=== PATIENT | female | born 1950 | race Hispanic/Latino ===

== ENCOUNTER 2019-08-27 22:07 | Observation (INO) | payer OTHER ==
[2019-08-27] MEDS ORDERED: DIAZEPAM 5 MG TABLET ONE (22:50)
[2019-08-27 23:59] LABS: Absolute Lymphocytes (CBC) 1.5 K/uL (0.7-4.9); Basophils % 0.7 % (0-1.3); Hematocrit 45.5 % (36.0-45.0); Lymphocytes % 16.8 % (15.3-44.8); MPV 9.8 fL (7.6-11.3); RBC Red Blood Cell Count 4.94 M/uL (3.86-4.86)
[2019-08-28 00:01] LABS: Protime INR 1.08
[2019-08-28 00:18] LABS: ALT/SGPT 23 U/L (12-78); AST/SGOT 16 U/L (15-37); Albumin 3.9 g/dL (3.4-5.0); Alkaline Phosphatase 66 U/L (45-117); BUN Blood Urea Nitrogen 14 mg/dL (7-18); Bicarbonate 24 mmol/L (21-32); Bilirubin Direct 0.2 mg/dL (0-0.2); Bilirubin Total 0.6 mg/dL (0.2-1.0); Glucose Level 174 mg/dL (74-106); Magnesium 2.1 mg/dL (1.8-2.4); NT PRO-BNP 102 pg/mL (<125); Protein, Total 8.6 g/dL (6.4-8.2); Sodium Level 137 mmol/L (136-145); Troponin (Emerg Dept Use Only) < 0.02 ng/mL (0.0-0.045)
--- NOTE | 2019-08-28 00:48 | ER ---
Nurse's Notes [facility] Name: Emelina Cummings Age: 69 yrs Sex: Female : 1950 Arrival Date: 08/27/2019 Time: 22:10 Bed 27 Private MD: Diagnosis: Chest pain, unspecified Presentation: 08/26 22:24 Chief complaint: Patient states: Pt states she has pain in the neck for two days and ls4 back pain in the thoracic area the radiates to the front. pt states she has had these pains before. Pt states she took tramadol for this but it ran out . Coronavirus screen: Proceed with normal triage. Patient denies a cough. Patient denies shortness of breath or difficulty breathing. Patient denies measured and/or subjective temperature greater than 100.4F prior to today's visit. Patient denies travel on a cruise ship or to a country the [facility] currently lists as an affected area. Patient denies contact with known and/or suspected case of COVID-19. Ebola Screen: No symptoms or risks identified at this time. Initial Sepsis Screen: Does the patient meet any 2 criteria? HR > 90 bpm. No. Patient's initial sepsis screen is negative. Does the patient have a suspected source of infection? No. Patient's initial sepsis screen is negative. Risk Assessment: Do you want to hurt yourself or someone else? Patient reports no desire to harm self or others. Onset of symptoms was August 24, 2019 at 08:00. Care prior to arrival: Medication(s) given: tramadol. Activity prior to arrival: None. 22:24 Method Of Arrival: Ambulatory ls4 22:24 Acuity: DOMINIQUE 3 ls4 Triage Assessment: 22:37 General: Appears in no apparent distress. Behavior is calm, cooperative. Pain: ls4 Complains of pain in neck Pain currently is 7 out of 10 on a pain scale. Neuro: No deficits noted. Level of Consciousness is awake, alert, obeys commands, Oriented to person, place, time, situation, Bottler are equal bilaterally Moves all extremities. Gait is steady, Speech is normal, Facial symmetry appears normal, Pupils are PERRLA, Respiratory: No deficits noted. GI: No deficits noted. No signs and/or symptoms were reported involving the gastrointestinal system. : No deficits noted. No signs and/or symptoms were reported regarding the genitourinary system. Derm: No deficits noted. No signs and/or symptoms reported regarding the dermatologic system. Musculoskeletal: No deficits noted. No signs and/or symptoms reported regarding the musculoskeletal system. Historical: - Allergies: 22:37 No Known Allergies; ls4 - Home Meds: 22:37 Januvia oral oral [Active]; losartan oral oral [Active]; ls4 - PMHx: 22:37 Hypertension; Diabetes - IDDM; ls4 - Immunization history:: Adult Immunizations up to date, Flu vaccine is up to date. - Social history:: Smoking status: Patient denies any tobacco usage or history of. Screenin:40 Abuse screen: Denies threats or abuse. Denies injuries from another. Nutritional ls4 screening: No deficits noted. Tuberculosis screening: No symptoms or risk factors identified. Fall Risk None identified. Assessment: 22:10 General: Appears in no apparent distress. comfortable. Neuro: No deficits noted. ls4 Cardiovascular: Reports pain behind left scapula that radiates around to front under left chest that started this morning. pt denied chest pain earlier, but family called to tell us that she was complaining of pain that was in her back and chest. Denies diaphoresis, fatigue, lightheadedness, nausea, palpitations, shortness of breath, syncope, vomiting, Capillary refill < 3 seconds Clubbing of nail beds is absent Patient's skin is warm and dry. Rhythm is regular. Respiratory: Airway is patent Respiratory effort is even, unlabored, Respiratory pattern is regular, Breath sounds are clear bilaterally. Denies cough, shortness of breath at rest. GI: No deficits noted. No signs and/or symptoms were reported involving the gastrointestinal system. : No deficits noted. No signs and/or symptoms were reported regarding the genitourinary system. EENT: No deficits noted. No signs and/or symptoms were reported regarding the EENT system. Derm: No deficits noted. No signs and/or symptoms reported regarding the dermatologic system. Musculoskeletal: Reports pain in left scapular area and neck. 23:39 Reassessment: Patient appears in no apparent distress at this time. Patient and/or ls4 family updated on plan of care and expected duration. Pain level reassessed. Patient is alert, oriented x 3, equal unlabored respirations, skin warm/dry/pink. 08/27 01:00 Reassessment: Patient appears in no apparent distress at this time. Patient and/or jb4 family updated on plan of care and expected duration. Pain level reassessed. Patient is alert, oriented x 3, equal unlabored respirations, skin warm/dry/pink. 02:00 Reassessment: Patient appears in no apparent distress at this time. Patient and/or jb4 family updated on plan of care and expected duration. Pain level reassessed. Patient is alert, oriented x 3, equal unlabored respirations, skin warm/dry/pink. 03:00 Reassessment: Patient appears in no apparent distress at this time. Patient and/or jb4 family updated on plan of care and expected duration. Pain level reassessed. Patient is alert, oriented x 3, equal unlabored respirations, skin warm/dry/pink. 04:30 Reassessment: Patient appears in no apparent distress at this time. Patient and/or jb4 family updated on plan of care and expected duration. Pain level reassessed. Patient is alert, oriented x 3, equal unlabored respirations, skin warm/dry/pink. PT transported upstairs to room 230 via wheelchair. IV saline lock, without s/s of infiltration or phlebitis. Gives good blood return and flushes with ease. Vital Signs: 08/26 22:24 BP 148 / 98; Pulse 126; Resp 14; Temp 98.1; Pulse Ox 99% on R/A; Weight 68.04 kg; ls4 Height 5 ft. 4 in. (162.56 cm); Pain 8/10; 23:35 BP 114 / 70; Pulse 107; Resp 14; Pulse Ox 100% on R/A; Pain 5/10; ls4 08/27 00:53 BP 128 / 64; Pulse 98; Resp 16; Pulse Ox 100% on R/A; Pain 3/10; ls4 02:00 BP 120 / 75; Pulse 97; Resp 16; Pulse Ox 96% on R/A; jb4 03:15 BP 97 / 72; Pulse 91; Resp 16; Pulse Ox 94% on R/A; jb4 04:30 BP 107 / 67; Pulse 81; Resp 16; Temp 97.4(O); Pulse Ox 96% on R/A; Pain 2/10; jb4 08/26 22:24 Body Mass Index 25.75 (68.04 kg, 162.56 cm) ls4 ED Course: 08/26 22:10 Patient arrived in ED. cl3 22:13 Kvng Brooks PA is PHCP. [facility] 22:13 Carlos Gil MD is Attending Physician. jmm 22:23 Bessy Valero, RN is Primary Nurse. ls4 22:28 Triage completed. ls4 22:39 Arm band placed on. ls4 22:40 Patient has correct armband on for positive identification. Bed in low position. Call ls4 light in reach. Side rails up X 1. Pulse ox on. NIBP on. Warm blanket given. 22:41 No provider procedures requiring assistance completed. Patient did not have IV access ls4 during this emergency room visit. 23:04 EKG done, by ED staff, reviewed by Kvng FUENTES. jp3 23:15 Chest Single View XRAY In Process Unspecified. EDMS 08/27 00:47 Meggan Girard MD is Hospitalizing Provider. [facility] 00:57 No apparent distress. Resting quietly. Awaiting bed assignment. ls4 Administered Medications: 08/26 22:53 Drug: Valium 5 mg Route: PO; ls4 23:10 Follow up: Response: No adverse reaction; Marked relief of symptoms ls4 23:20 Follow up: Response: No adverse reaction; Marked relief of symptoms ls4 08/27 02:08 Drug: Aspirin Chewable Tablet 324 mg Route: PO; jb4 03:00 Follow up: Response: No adverse reaction jb4 Outcome: 00:47 Decision to Hospitalize by Provider. [facility] 04:30 Admitted to Med/surg accompanied by nurse, via wheelchair, room 230, with chart, Report jb4 called to [facility] 04:30 Condition: stable 04:30 Discharge instructions given to patient, Instructed on the need for admit, Demonstrated understanding of instructions. 04:36 Patient left the ED. ar5 Signatures: Dispatcher [employer] EDTX Kvng Brooks PA PA jmm Bryson, James, RN RN jb4 Watson Esparza jp3 Bessy Valero, RN RN ls4 Franchesca Ashby ar5 Anum Mora cl3
--- NOTE | 2019-08-28 00:48 | EDPHYS ---
Physician Documentation [facility] Name: Emelina Cummings Age: 69 yrs Sex: Female : 1950 Arrival Date: 08/27/2019 Time: 22:10 Bed 27 Private MD: ED Physician Carlos Gil HPI: 08/26 22:20 This 69 yrs old Female presents to ER via Ambulatory with complaints of Stiff jmm Neck. 22:20 The patient or guardian reports chest pain that is located primarily in the substernal m area. Onset: acutely, 12 hour(s) ago. The pain radiates to left back. Associated signs and symptoms: Pertinent negatives:. The chest pain is described as sharp. Duration: The patient or guardian reports a single episode, that is still ongoing. Modifying factors: The symptoms are alleviated by nothing. the symptoms are aggravated by deep breath, movement. Historical: - Allergies: 22:37 No Known Allergies; ls4 - Home Meds: 22:37 Januvia oral oral [Active]; losartan oral oral [Active]; ls4 - PMHx: 22:37 Hypertension; Diabetes - IDDM; ls4 - Immunization history:: Adult Immunizations up to date, Flu vaccine is up to date. - Social history:: Smoking status: Patient denies any tobacco usage or history of. ROS: 22:20 Constitutional: Negative for fever, chills, and weight loss. jmm 22:20 Cardiovascular: Positive for chest pain. 22:20 Back: Positive for pain at rest, pain with movement. 22:20 All other systems are negative. Exam: 22:20 Constitutional: This is a well developed, well nourished patient who is awake, alert, jmm and in no acute distress. Head/Face: atraumatic. Eyes: EOMI, no conjunctival erythema appreciated ENT: Moist Mucus Membranes Neck: Trachea midline, Supple 22:20 Chest/axilla: Inspection: normal, Palpation: tenderness, that is mild, of the anterior aspect of left upper chest. 22:20 Cardiovascular: Rate: normal, Rhythm: regular, Pulses: no pulse deficits are appreciated. 22:20 Respiratory: the patient does not display signs of respiratory distress, Respirations: normal, Breath sounds: are clear throughout. 22:20 Back: pain, that is mild, of the left subscapular area, CVA tenderness, is absent, vertebral tenderness, is not appreciated. 22:20 Musculoskeletal/extremity: ROM: intact in all extremities. 22:20 Skin: Appearance: Color: normal in color. 22:20 Neuro: Orientation: is normal, Mentation: is normal, Memory: is normal. 22:20 Psych: Behavior/mood is pleasant, cooperative. Vital Signs: 22:24 BP 148 / 98; Pulse 126; Resp 14; Temp 98.1; Pulse Ox 99% on R/A; Weight 68.04 kg; ls4 Height 5 ft. 4 in. (162.56 cm); Pain 8/10; 23:35 BP 114 / 70; Pulse 107; Resp 14; Pulse Ox 100% on R/A; Pain 5/10; ls4 08/27 00:53 BP 128 / 64; Pulse 98; Resp 16; Pulse Ox 100% on R/A; Pain 3/10; ls4 02:00 BP 120 / 75; Pulse 97; Resp 16; Pulse Ox 96% on R/A; jb4 03:15 BP 97 / 72; Pulse 91; Resp 16; Pulse Ox 94% on R/A; jb4 04:30 BP 107 / 67; Pulse 81; Resp 16; Temp 97.4(O); Pulse Ox 96% on R/A; Pain 2/10; jb4 08/26 22:24 Body Mass Index 25.75 (68.04 kg, 162.56 cm) ls4 MDM: 08/26 22:20 Patient medically screened. [facility] 08/27 00:46 Data reviewed: vital signs, nurses notes. Counseling: I had a detailed discussion with [facility] the patient and/or guardian regarding: the historical points, exam findings, and any diagnostic results supporting the discharge/admit diagnosis, radiology results, the need for further work-up and treatment in the hospital. ED course: I discussed the patient with Dr. Girard whom accepted the patient for admission. . 08/26 22:55 Order name: Basic Metabolic Panel; Complete Time: 00:19 [facility] 08/26 22:55 Order name: CBC with Diff; Complete Time: 00:19 [facility] 08/26 22:55 Order name: LFT's; Complete Time: 00:19 [facility] 08/26 22:55 Order name: Magnesium; Complete Time: 00:19 [facility] 08/26 22:55 Order name: NT PRO-BNP; Complete Time: 00:19 [facility] 08/26 22:55 Order name: PT-INR; Complete Time: 00:19 [facility] 08/26 22:47 Order name: Chest Single View XRAY [facility] 08/26 22:55 Order name: Troponin (emerg Dept Use Only); Complete Time: 00:19 [facility] 08/27 01:07 Order name: D-Dimer; Complete Time: 01:39 [facility] 08/27 01:07 Order name: Troponin I [facility] 08/27 01:07 Order name: Troponin I [facility] 08/27 01:39 Order name: CT Chest For PE Angio [facility] 08/26 22:49 Order name: EKG - Nurse/Tech; Complete Time: 22:54 [facility] 08/26 22:55 Order name: Cardiac monitoring; Complete Time: 23:14 [facility] 08/26 22:55 Order name: IV Saline Lock; Complete Time: 23:15 [facility] 08/26 22:55 Order name: Labs collected and sent; Complete Time: 23:19 [facility] 08/26 22:55 Order name: O2 Per Protocol; Complete Time: 23:05 [facility] 08/26 22:55 Order name: O2 Sat Monitoring; Complete Time: 23:05 [facility] 08/27 01:07 Order name: CONS Pharmacy Consult [facility] 08/27 01:07 Order name: Consistent Carb (ADA) [address] [facility] Administered Medications: 08/26 22:53 Drug: Valium 5 mg Route: PO; ls4 23:10 Follow up: Response: No adverse reaction; Marked relief of symptoms ls4 23:20 Follow up: Response: No adverse reaction; Marked relief of symptoms 4 08/27 02:08 Drug: Aspirin Chewable Tablet 324 mg Route: PO; jb4 03:00 Follow up: Response: No adverse reaction jb4 Disposition: 06:30 Co-signature as Attending Physician, Carlos Gil MD I agree with the assessment and 4 plan of care. Disposition: 08/28/19 00:47 Hospitalization ordered by Meggan Girard for Observation. Preliminary diagnosis is Chest pain, unspecified. - Bed requested for Telemetry/MedSurg (observation). - Status is Observation. ar5 - Condition is Stable. - Problem is new. - Symptoms have improved. Signatures: Dispatcher [employer] EDMS Kvng Brooks PA PA jmm Garcia, Cindy, RN RN cg Sean Vnag, RN RN jb4 Carlos Gil MD MD tw4 Bessy Valero RN RN ls4 Franchesca Ashby ar5 Corrections: (The following items were deleted from the chart) 02:07 00:47 Hospitalization Ordered by Meggan Girard MD for Observation. Preliminary cg diagnosis is Chest pain, unspecified. Bed requested for Telemetry/MedSurg (observation). Status is Observation. Condition is Stable. Problem is new. Symptoms have improved. [facility] 04:36 02:07 08/28/2019 00:47 Hospitalization Ordered by Meggan Girard MD for Observation. ar5 Preliminary diagnosis is Chest pain, unspecified. Bed requested for Telemetry/MedSurg (observation). Status is Observation. Condition is Stable. Problem is new. Symptoms have improved. cg
[2019-08-28] MEDS ORDERED: ACETAMINOPHEN 500 MG TAB PO PRN (00:59)
[2019-08-28] MEDS ORDERED: ONDANSETRON 4 MG/2 ML VIAL IV PRN (00:59)
[2019-08-28] MEDS ORDERED: MORPHINE 2 MG/ML SYR IV PRN (00:59)
[2019-08-28] MEDS ORDERED: ALBUTEROL 2.5 MG/3 ML NEB SOL NEB PRN (00:59)
[2019-08-28] MEDS ORDERED: NITROGLYCERIN 0.4 MG/TAB SL ONE (01:01)
[2019-08-28] MEDS ORDERED: LORAZEPAM 0.5 MG TABLET PO PRN (01:01)
[2019-08-28] MEDS ORDERED: HYDRALAZINE HCL 20 MG/ML VIAL IV PRN (01:01)
[2019-08-28] MEDS ORDERED: BACLOFEN 10 MG TAB PO ONE (01:03)
--- NOTE | 2019-08-28 01:16 | P.HP ---
Certification for Inpatient Patient admitted to: Observation Patient will require the following post-hospital care: Home Health Services Practitioner: I am a practitioner with admitting privileges, knowledge of patient current condition, hospital course, and medical plan of care. Services: Services provided to patient in accordance with Admission requirements found in Title 42 Section 412.3 of the Code of Federal Regulations Patient History Date of Service: 08/28/19 Reason for admission: Chest pain History of Present Illness: 69-year-old female with past medical history of hypertension, diabetes mellitus, presented with neck pain radiating to the left side of the chest and also to the back. Symptoms have been ongoing intermittently since the last 3 days. Symptoms are crampy and aching. Symptoms also worse with movement. She denies similar episode in the past. In the ED she was given aspirin and symptoms reduced but persistent. She denies any headache or dizziness. She denies any recent travel. She denies any leg pain or calf tenderness Chest x- ray as well as EKG was unremarkable. She has been admitted for rule out acute coronary syndrome. Initial troponin was negative Allergies No Known Allergies Allergy (Verified 08/28/19 04:43) Home medications list reviewed: No - Past Medical/Surgical History Has patient received pneumonia vaccine in the past: No -: HTN -: Diabetes mellitus Past Surgical History: Patient denies surgical history - Family History Family History: Reviewed- Non-Contributory - Family History Father History Unknown: Yes -: Lung disease, Cancer Mother -: Diabetes - Social History Smoking Status: Never smoker Smoking therapy provided: No Alcohol use: No CD- Drugs: No Caffeine use: No Place of Residence: Home Review of Systems 10-point ROS is otherwise unremarkable Physical Examination - Physical Exam General: Alert, In no apparent distress, Oriented x3, Cooperative HEENT: Atraumatic, Normocephalic, PERRLA Respiratory: Clear to auscultation bilaterally, Normal air movement Cardiovascular: No edema, Normal pulses, Regular rate/rhythm, Normal S1 S2 Gastrointestinal: Normal bowel sounds, Soft and benign, Non-distended Musculoskeletal: No clubbing, No swelling Integumentary: No rashes, No breakdown Neurological: Normal speech, Normal strength at 5/5 x4 extr, Cranial nerves 3-12 intact External genitalia: No edema, No lesions - Studies Laboratory Data (last 24 hrs) 08/27/19 23:45: PT 12.7 H, INR 1.08 08/27/19 23:45: WBC 8.8, Hgb 14.9, Hct 45.5 H, Plt Count 160 08/27/19 23:45: Sodium 137, Potassium 4.0, BUN 14, Creatinine 0.78, Glucose 174 H, Magnesium 2.1, Total Bilirubin 0.6, AST 16, ALT 23, Alkaline Phosphatase 66 Imagings Data: Chest x-ray-no acute infiltrate Assessment and Plan - Problems (Diagnosis) (1) Chest pain Current Visit: Yes Status: Acute Discharge Plan: Home - Advance Directives Does patient have a Living Will: No Does patient have a Durable POA for Healthcare: No Physician Review: Patient Assessed, Agree with Above Assessment and Plan Physician Review Additional Text: Chest pain-atypical for acute coronary syndrome. -will obtain serial set of cardiac enzymes. -follow repeat EKG in a.m. -will obtain D-dimer now -will strt nitroglycerin sublingual x1 as well as baclofen for presumed musculoskeletal pattern of pain now -start PPI b.i.d. #Hypertension-resume losartan, IV hydralazine p.r.n. #Diabetes mellitus-resume Januvia, start insulin sliding scale with Accu-Cheks #DVT prophylaxis-subcutaneous heparin #Advanced directive-discussed Addendum - at follow up , pt neck pain much improved with baclofen use , still left chest pain when getting up from bed ,elevated D-dimr noted , will obtain cta chest to r/o PE and also start nitro patch and cardiology consult Time Spent Managing Pts Care (In Minutes): 65
[2019-08-28] MEDS ORDERED: ASPIRIN 81 MG CHEWABLE TABLET ONE (02:08)
[2019-08-28 04:46] VITALS: BMI 29.8
[2019-08-28] MEDS: NITROGLYCERIN 0.2 MG/HR (5 MG) PATCH TD SCH ×2 (05:40→08:20)
[2019-08-28] MEDS ORDERED: NITROGLYCERIN 1 GM PKT TD ONE (07:15)
[2019-08-28] MEDS ORDERED: INSULIN -REGULAR HUMAN 50 UNIT/0.5 ML ML SQ SCH (07:30)
[2019-08-28 08:16] VITALS: BP 125/72
--- NOTE | 2019-08-28 08:16 | P.DS ---
Admission Date: 08/28/19 Discharge Date: 08/28/19 Disposition: ROUTINE DISCHARGE Discharge Condition: GOOD Reason for Admission: Chest pain Consultations: Exchange Engineer Dr. Mora Brief History of Present Illness: From H and P 69-year-old female with past medical history of hypertension, diabetes mellitus, presented with neck pain radiating to the left side of the chest and also to the back. Symptoms have been ongoing intermittently since the last 3 days. Symptoms are crampy and aching. Symptoms also worse with movement. She denies similar episode in the past. In the ED she was given aspirin and symptoms reduced but persistent. She denies any headache or dizziness. She denies any recent travel. She denies any leg pain or calf tenderness Chest x- ray as well as EKG was unremarkable. She has been admitted for rule out acute coronary syndrome. Initial troponin was negative Hospital Course: Patient is a 69-year-old female with past medical history of hypertension diabetes comes in with 3 days of chest pain. Patient states it started when she was turning get into her 's truck and had sudden onset of pain around her shoulder blade that radiated to the front. Patient is admitted started on chest pain guidelines and acute coronary syndrome was ruled out. Her cardiac enzymes were negative. EKG did not show any acute changes. Cardiology was consulted. Dr. Mora recommended outpatient echocardiogram and stress test. Patient has point tenderness on the left edge of the scapula. This is likely musculoskeletal pain which is worsened with movement. Patient was recommended to use [id number] Tylenol and ibuprofen within reasonable limits. Patient stated that her pain has improved already. Her chest x-ray and CT scan of the chest were negative and did not show any pulmonary embolism. No signs of DVT. Patient will need to continue her home medications for her blood pressure and diabetes and to continue monitoring her blood glucose levels. She can follow up with her primary care physician regarding her chronic medical conditions. Patient was then cleared for discharge from consultants standpoint and was sent home in a stable condition. #Chest pain-atypical. acute coronary syndrome ruled out #Hypertension-resume losartan, IV hydralazine p.r.n. #Diabetes mellitus type 2 with hyperglycemia dra-swvlyzo-lpvpffiuh-resume Januvia, start insulin sliding scale with Accu-Cheks Vital Signs/Physical Exam: Temp Pulse Resp BP Pulse Ox 97.3 F 88 16 110/70 96 04/19/20 04:00 08/28/19 04:00 08/28/19 04:00 08/28/19 04:00 08/28/19 04:00 General: Alert, In no apparent distress, Oriented x3 HEENT: Atraumatic, PERRLA, EOMI Neck: Supple, JVD not distended Respiratory: Clear to auscultation bilaterally, Normal air movement, Other (No wheezing or stridor) Cardiovascular: No edema, Normal pulses, Regular rate/rhythm, Normal S1 S2 Gastrointestinal: Normal bowel sounds, Soft and benign, Non-distended, No tenderness Musculoskeletal: Tenderness (Left scapular edge, 5th anterior left rib) Integumentary: No rashes Neurological: Normal speech, Normal strength at 5/5 x4 extr, Normal tone, Normal affect Laboratory Data at Discharge: WBC 8.8 K/uL (4.3-10.9) 08/27/19 23:45 Hgb 14.9 g/dL (12.0-15.0) 08/27/19 23:45 Hct 45.5 % (36.0-45.0) H 08/27/19 23:45 Plt Count 160 K/uL (152-406) 08/27/19 23:45 PT 12.7 SECONDS (9.5-12.5) H 08/27/19 23:45 INR 1.08 08/27/19 23:45 Sodium 137 mmol/L (136-145) 08/27/19 23:45 Potassium 4.0 mmol/L (3.5-5.1) 08/27/19 23:45 BUN 14 mg/dL (7-18) 08/27/19 23:45 Creatinine 0.78 mg/dL (0.55-1.3) 08/27/19 23:45 Glucose 174 mg/dL (74-106) H 08/27/19 23:45 Magnesium 2.1 mg/dL (1.8-2.4) 08/27/19 23:45 Total Bilirubin 0.6 mg/dL (0.2-1.0) 08/27/19 23:45 AST 16 U/L (15-37) 08/27/19 23:45 ALT 23 U/L (12-78) 08/27/19 23:45 Alkaline Phosphatase 66 U/L (45-117) 08/27/19 23:45 Troponin I < 0.02 ng/mL (0.0-0.045) 08/28/19 04:38 Imagings Data: CT angio chest does not show any PE Patient Discharge Instructions: Follow up with primary care physician in 1-2 weeks. Follow up with canceling and cutting control clerk Dr. Mora in 2 weeks. Return to ER for worsening condition Diet: ADA Activity: Ad joseluis
[2019-08-28 08:22] VITALS: TEMP 97.2
[2019-08-28] MEDS ORDERED: LOSARTAN POTASSIUM 50 MG TABLET PO SCH (09:00)
[2019-08-28] MEDS ORDERED: EZETIMIBE 10 MG TAB PO SCH (09:00)
[2019-08-28] MEDS ORDERED: SITAGLIPTIN PHOS 100 MG TAB PO SCH (09:00)
[2019-08-28] MEDS ORDERED: FAMOTIDINE 20 MG TAB PO SCH (09:00)
[2019-08-28] MEDS ORDERED: ENOXAPARIN 40 MG/0.4 ML SQ SCH (09:00)
[2019-08-28] MEDS ORDERED: ASPIRIN EC 81 MG TAB PO SCH (09:00)
[2019-08-28 09:05] VITALS: O2SAT 98
--- NOTE | 2019-08-28 09:06 | RAD REPORT ---
EXAM DESCRIPTION: RAD - Chest Single View - 08/27/2019 11:15 pm CLINICAL HISTORY: left sided chest pain, back pain COMPARISON: October 2011 TECHNIQUE: AP portable chest image was obtained 08/27/2019 11:15 pm . FINDINGS: Lung volumes are very low. Right hemidiaphragm elevation is present exaggerated compared t o the prior study. Lung base atelectasis is evident. Posterior lung base infiltrates cannot be exclud ed. No infiltrates seen in the mid or upper lung bhatt. No significant failure or volume overload. H eart and vasculature are normal. No measurable pleural effusion and no pneumothorax. No acute bony ab normality seen. No acute aortic findings suspected. IMPRESSION: Limited shallow inspiration film showing lung base atelectasis.
--- NOTE | 2019-08-28 11:34 | RAD REPORT ---
EXAM DESCRIPTION: CT - Chest For Pe Angio - 08/28/2019 6:54 am CLINICAL HISTORY: CHEST PAIN COMPARISON: None Available. TECHNIQUE: CTA of the chest obtained following the uncomplicated intravenous administration of iodin ated contrast.. 3-D/MIP reformatted images of the chest available for evaluation. FINDINGS: Chest: Pulmonary arteries: Contrast bolus is adequate.No filling defects identified in the pulmonary arterie s to suggest pulmonary embolus. Respiratory motion artifact. Suboptimal evaluation of the subsegmenta l pulmonary arteries. Thyroid: No abnormalities of the visualized thyroid. Great Vessels: Great vessels have normal anatomic configuration. Thoracic Aorta: Atherosclerotic calcification of the thoracic aorta. No evidence of aortic dissection . Heart: Coronary artery atherosclerosis. Heart is not enlarged. Lymph Nodes: No enlarged mediastinal lymph nodes identified. Esophagus: No abnormalities of the esophagus identified. Other: No additional findings. Lungs: Respiratory motion artifact. Scattered linear opacities likely representing discoid atelectasi s. No confluent airspace consolidation. Scattered areas of air trapping likely related to expiratory imaging. Elevation the right hemidiaphragm. Pleura: No pleural effusion or pneumothorax. Trachea/Airways: No acute abnormality of the trachea. Bones: Mild degenerative endplate spondylosis. Upper Abdomen: Limited images of the upper abdomen demonstrate no definite abnormalities of visualize d portions of the liver, gallbladder, pancreas, spleen, adrenal glands, or kidneys. IMPRESSION: 1. No pulmonary embolus identified. 2. Coronary artery atherosclerosis. 3. Mild bilateral discoid/subsegmental atelectasis. This exam was performed according to our departmental dose-optimization program, which includes autom ated exposure control, adjustment of the mA and/or kV according to patient size and/or use of iterati ve reconstruction technique. Electronically signed by: Nikolai Terry 08/28/2019 4:12 AM CDT Due to temporary technical issues with the PACS/Fluency reporting system, reports are being signed by the in house radiologist as a courtesy to ensure prompt reporting. The interpreting radiologist is f ully responsible for the content of the report.
--- NOTE | 2019-08-28 12:15 | CON ---
Date of Consultation: 08/28/2019 Reason For Consultation: Chest pain. History Of Present Illness: Ms. Cummings is a 69-year-old woman, has a history of hypert ension, diabetes. She does not have a family history of heart disease, dyslipidemia, and she does no t have any history of smoking. She initially came in with a stiff neck which resolved, but then she started having a pleuritic sharp, stabbing chest pain over the left lateral wall breast area. Her pa in would get much worse at the time she took a deep breath, though she tries just to get up from bed. No nausea, vomiting, diaphoresis, PND, orthopnea, pedal edema, palpitations, or syncope. She had a normal EKG, normal troponin. Her glucose was 174. Her D-dimer was [address] angiogram for pulmonary embolus. She is feeling much better today. Past Medical History: As stated above. Allergies: NONE. Review of Systems: Negative. Social History: Negative. Family History: Negative. Present Medications: Inhalers, aspirin, Lovenox, hydralazine, insulin, losartan, and Januvia. Physical Examination: General: She is very pleasant. No acute distress. Vital Signs: Stable, afebrile. HEENT: Negative. Neck: Supple. No bruit. Chest: Clear. Cardiac: Reveals a regular rhythm and rate. No murmurs, gallops, or rubs. Abdomen: Benign. Extremities: Reveal no clubbing, cyanosis, or edema. Impression And Plan: 1.Atypical chest pain, most likely pleuritic. She had an elevated D-dimer which was concerning, but she has a negative CT angiogram. She is not hypoxic. EKG is normal. Chest x-ray is normal. Tropo shay is normal. I am comfortable with Ms. Cummings going home, and I will make arrangements for her to h ave an echocardiogram and a stress test as an outpatient. Her blood pressure is fairly well controll ed. 2.Diabetes, is borderline controlled. NB/MODL Voice ID: [id number] Report ID: [id number]
[2019-08-29] MEDS ORDERED: LEVOTHYROXINE SOD 0.088 MG TAB PO SCH (06:00)
--- NOTE | 2019-08-29 16:26 | EKG ---
Test Date: 2019-08-27 Test Time: 22:57:07 Treasury Director: BECCA MEASUREMENT RESULTS: Intervals: Rate: 108 PA: 134 QRSD: 70 QT: 342 QTc: 458 [place]: P: 55 PA: 134 QRS: -21 T: 10 INTERPRETIVE STATEMENTS: Sinus tachycardia with frequent premature ventricular complexes and fusion complexes Cannot rule out Anterior infarct, age undetermined Abnormal ECG Compared to ECG 11/13/2003 09:14:00 Fusion complex(es) now present Ventricular premature complex(es) now present Sinus bradycardia no longer present Left ventricular hypertrophy no longer present Myocardial infarct finding still present Electronically Signed On 08-29-19 16:23:08 CDT by Darius Mora
== END 2019-08-28 09:20 | disposition home or self-care (01) ==
LOC: ER 22:07 → ERHOLD 08-28 01:35 → 2ND 08-28 04:18
PROVIDERS: ADMIT Internal Medicine; ATTEND Family Medicine
DX: R07.89 Other chest pain (principal); E11.65 Type 2 diabetes mellitus with hyperglycemia; I10 Essential (primary) hypertension; M54.2 Cervicalgia; Z79.4 Long term (current) use of insulin
CPT/HCPCS: 93005; 85025; 80048; 36415; 83735; 85610; 82947; 85379; 80076; 84484 ×3; 83880; 71275; 71045; 99285; Q9967; J1650; G0378 ×2

== ENCOUNTER 2022-04-08 08:10 | Observation (INO) | payer OTHER ==
[2022-04-02 11:59] LABS: Absolute Lymphocytes (CBC) 1.7 K/uL (0.7-4.9); Hematocrit 41.4 % (36.0-45.0); MCV 92.7 fL (80-100); MPV 9.7 fL (7.6-11.3); RBC Red Blood Cell Count 4.46 M/uL (3.86-4.86)
[2022-04-02 12:01] LABS: Potassium 4.4 mmol/L (3.5-5.1)
[2022-04-02 12:03] LABS: Protime INR 1.07
[2022-04-02 14:13] LABS: Specific Gravity 1.013 (1.005-1.030); Urine Bilirubin NEGATIVE (Negative); Urine Blood Negative (Negative); Urine Clarity Clear (Clear); Urine Color Light-Yellow (Yellow); Urine Glucose TRACE (Negative); Urine Protein NEGATIVE (Negative); Urine Urobilinogen Normal (Normal)
[2022-04-08] MEDS ORDERED: CEFAZOLIN SODIUM 2 GM/VIAL ONE (08:30)
[2022-04-08] MEDS ORDERED: NA CHLORIDE 0.9% 1,000 ML ONE ×3 (08:30→14:05)
[2022-04-08] MEDS ORDERED: KETAMINE HCL 500 MG/5 ML VIAL ONE (08:31)
[2022-04-08] MEDS ORDERED: propofoL 200 MG/20 ML VIAL IV ONE (08:31)
[2022-04-08] MEDS ORDERED: FENTANYL CITR 100 MCG/2 ML ONE ×2 (08:31→12:37)
[2022-04-08] MEDS ORDERED: ROCURONIUM 50 MG/5 ML VIAL IV ONE ×2 (08:32→11:47)
[2022-04-08] MEDS ORDERED: LIDOCAINE 2% MPF 5 ML VIAL ONE (08:32)
[2022-04-08] MEDS ORDERED: MIDAZOLAM HCL 2 MG/2 ML INJ ONE (08:32)
[2022-04-08] MEDS ORDERED: NS 0.9% VIAL 20 ML ONE (08:32)
[2022-04-08] MEDS ORDERED: dexAMETHasone 10 MG/ML VIAL ONE (08:32)
[2022-04-08] MEDS ORDERED: ONDANSETRON 4 MG/2 ML VIAL ONE (08:32)
[2022-04-08 08:46] LABS: SARS-CoV-2 Antigen Rapid Res Negative (Negative)
[2022-04-08] MEDS ORDERED: LIDOCAINE 1% MPF 30 ML VIAL ONE (09:13)
[2022-04-08] MEDS ORDERED: NA CHLORIDE 0.9% 100 ML IV ONE (09:13)
[2022-04-08] MEDS: CEFAZOLIN SODIUM 1 GM/VIAL ONE ×2 (09:50→10:15)
[2022-04-08] MEDS ORDERED: HEPARIN 5000 UNIT/ML 1 ML VIAL ONE (10:26)
[2022-04-08] MEDS: VASOPRESSIN 20 UNIT/ML VIAL ONE ×2 (10:35→12:52)
[2022-04-08] MEDS ORDERED: GLYCOPYRROLATE 0.2 MG/ML SYR ONE (10:47)
[2022-04-08] MEDS ORDERED: CEFAZOLIN SODIUM 1 GM/VIAL ONE ×2 (13:50→21:10)
[2022-04-08] MEDS ORDERED: ACETAMINOPHEN 325 MG TABLET PO PRN (15:06)
[2022-04-08] MEDS ORDERED: MORPHINE 2 MG/ML SYR IV PRN (15:08)
[2022-04-08] MEDS ORDERED: PROMETHAZINE 25 MG TABLET PO PRN (15:10)
[2022-04-08] MEDS ORDERED: PROMETHAZINE INJ 25 MG/ML AMP IV PRN (15:10)
--- OUTSIDE RECORDS SUMMARY | 2022-04-08 15:10 | XMS REPORT | Clinical Summary ---
:1950 Author Organization [facility] MD [facility] Address [address] [place] [address] Care Team Providers Name Role Phone Sidney Dinh MD Unavailable Berenice Venegas MD Primary Care Provider [phone] Allergies No known active allergies Medications Medication Sig Dispensed Refills Start Date End Date Status repaglinide (PRANDIN) 2 Take 2 mg by 0 Active mg tablet mouth 2 (two) times a day before meals. LEVOXYL 75 mcg tablet Take 75 mcg by 0 Active mouth daily. empagliflozin Take by mouth 0 Ac tive (JARDIANCE) 25 mg tab daily. ergocalciferol (DRISDOL) Take 50,000 0 Active 50,000 units capsule Units by mouth every 30 (thirty) days. lisinopril Take 20 mg by 0 Activ e (PRINIVIL,ZESTRIL) 20 mg mouth every tablet morning. sitaGLIPtin-metFORMIN Take 1 tablet by 0 Active (JANUMET XR) 50-1,000 mg mouth twice TM24 daily. atorvastatin (LIPITOR) Take 40 mg by 0 Active 40 mg tablet mouth daily. ezetimibe (ZETIA) 10 mg Take 10 mg by 0 Active tablet mouth daily. multivitamin Take 1 tablet by 0 Active (multivitamin) tablet mouth daily. cranberry fruit extract Take by mouth 0 Active (CRANBERRY CONCENTRATE daily. ORAL) Active Problems Problem Noted Date Mammography abnormal 10/13/2017 Surgical History Surgery Date Site/Laterality Comments WRIST FRACTURE SURGERY 02/08/2003 - screws in place after 03/10/2003 fall TUBAL LIGATION 05/11/1987 - 05/10/1988 with herni a repair COLONOSCOPY 05/11/2007 - 05/10/2008 normal Medical History Medical History Date Comments Hypertension Hyperlipidemia Urinary tract infection Diabetes mellitus Fracture at wrist and/or hand level 2002 righ t wrist surgery, has metal and screws placed Hypothyroidism Family History Medical History Relation Name Comments Lymphoma Brother patient passed a t 44 Stomach cancer Other Nephew - possibl e stomach cancer -Breast cancer Neg Hx Ovarian cancer Neg Hx Pancreatic cancer Neg Hx Relation Name Status Comments Brother Other Social History Tobacco Use Types Packs/Day Years Used Date Smoking Tobacco: Never Smokeless Tobacco: Never Alcohol Use Standard Drinks/Week Comments No 0 (1 standard drink = 0.6 oz pure alcoho l) Sex Assigned at Date Recorded Not on file Obstetrics History Para Term AB IAB SAB Ectopic Multiple Living Live Births 4 4 Date Outcome GA Total Labor/2nd/3rd Weight Sex Delivery Anes PTL Noris A 1 A5 Name Clin Labor Para Para Para Para Comments Menarche - age 12 Menopause - age 55, natural Parity - age 26, OCPs - 1.5 years total Hormones - none - none Last Filed Vital Signs Not on file Plan of Treatment Health Maintenance Due Date Last Done Comments COVID-19 Vaccination (#1) 01/28/1951 Results Not on fileafter 04/08/2021 Insurance Payer Benefit Plan Subscriber ID Effective Phone Address Typ e / Group Dates AETNA MANAGED AETNA HMO [id number] 2017-[place] [address] [place] [id number] [place] [address] MEDICARE MEDICARE PART [id number] 2017-Prese [phone] [facility] Medicare A AND B nt 82 SOLUTIONS [address] [place] [address] Care Teams Web Operations Administrator Relationship Specialty Start Date End Date Sidney Dinh MD PCP - External Referring 09/23/[address] [place] [id number] Berenice Venegas PCP - General Breast Surgery 09/23/17 MD [facility] [address] [place] [id number]
--- OUTSIDE RECORDS SUMMARY | 2022-04-08 15:10 | XMS REPORT | Continuity of Care Document ---
:1950 Author Organization [facility] t Address [facility] [place] [address] Care Team Providers Name Role Phone Trey Hardin MD Primary Care Physician Argentina Grady Attending Clinician Unavailable Barbi Shields Attending Clinician Unavailable Belinda Henderson MD Attending Clinician PALMA MARSH Attending Clinician Unavailable KAYLIE WAY Attending Clinician Unavailable Lab, Adc Fam Pob I Attending Clinician Unavailable Kaylie Canas Attending Clinician Payers Payer Name Policy Type Policy Number Effective Date Expiration Date S prince MEDICARE B [id number] 2020 [employer]ILRO[employer] 00:00:00 AETNA MEDICARE ADV [id number] 2019 00:00:00 Problems This patient has no known problems. Allergies, Adverse Reactions, Alerts Allergy Allergy Status Severity Reaction(s) Onset Inactive Treating Comm ents Source Name Type Date Date Clinician NO KNOWN Drug Active Univers ALLERGIE Class ity of [facility] Social History Social Habit Start Date Stop Date Quantity Comments Source Exposure to Not sure [facility] SARS-CoV-2 (event) [facility] Branch Sex Assigned At [birth year] [facility] 00:00:00 00:00:00 Smoking Status Start Date Stop Date Source Tobacco smoking consumption unknown [facility] Medications Ordered Filled Start Stop Current Ordering Indication Dosage Frequency Signature Comments Components Source Medication Medication Date Date Medication? Clinician (SIG) Name Name empaglifloz Yes QD Take by Met bell in 25 mg 7-[address] tablet 09:17: daily. Hospita 39 l Trulicity Yes [facility] 1.5 mg/0.5 7-18 st mL 00:00: Hospita subcutaneou 00 l s pen ezetimibe Yes [facility] (ZETIA) 10 7-08 st mg tablet 00:00: Hospita 00 l nateglinide Yes 1 TABLET Me thodi (STARLIX) 6-[address] 120 MG 00:00: TWICE PER Hospit a tablet 00 DAY BEFORE l MEALS levothyroxi Yes TAKE 1 Meth katie ne 6-[address] (SYNTHROID) 00:00: MOUTH Hospi ta 88 mcg 00 DAILY IN l tablet THE MORNING ON AN EMPTY STOMACH atorvastati Yes 40mg QD Take 40 mg [facility] n (LIPITOR) 5-[address] 40 mg 00:00: daily. Hospita tablet 00 l metFORMIN Yes 1000mg Q.5D Take 1,000 [facility] (GLUCOPHAGE 5-[address] ) 1,000 mg 00:00: mouth 2 Hosp lydia tablet 00 (two) l times a day with meals. olmesartan Yes 40mg QD Take 40 mg M ethodi (BENICAR) 5-[address] 40 MG 00:00: daily. Hospita tablet 00 l Procedures Procedure Date / Time Performing Clinician Source Performed CT ORBITS WO CONTRAST 2021-12-06 17:35:06 Belinda Henderson [facility] T3, FREE 2021-11-29 16:15:00 Belinda Henderson [facility] T4, FREE 2021-11-29 16:15:00 Belinda Henderson [facility]ital THYROGLOBULIN ANTIBODY 2021-11-29 16:15:00 [facility] 2021-11-29 15:18:13 Belinda Henderson [facility] EXTENDED - OU - BOTH EYES AUTOMATED VISUAL FIELD, 2021-11-29 15:18:10 Belinda Henderson [facility] EXTENDED - OU - BOTH EYES Plan of Care Planned Activity Planned Date Details Comments Source Future Scheduled 2022-03-11 HEPATITIS B VACCINES [facility] Test 09:57:57 (1 of 3 - 3-dose series) [code = HEPATITIS B VACCINES (1 of 3 - 3-dose series)] Future Scheduled 2022-03-11 Hepatitis C screening [facility] Test 09:57:57 (procedure) [code = 355259736] Future Scheduled 2022-03-11 BREAST CANCER [facility] Test 09:57:57 SCREENING [code = BREAST CANCER SCREENING] Future Scheduled 2022-03-11 COLONOSCOPY SCREENING [facility] Test 09:57:57 [code = COLONOSCOPY SCREENING] Future Scheduled 2022-03-11 SHINGLES VACCINES (1 [facility] Test 09:57:57 of 2) [code = SHINGLES VACCINES (1 of 2)] Future Scheduled 2022-03-11 65+ [facility]OCOCCAL [facility] 09:57:57 VACCINE (1 - PCV) [code = 65+ PNEUMOCOCCAL VACCINE (1 - PCV)] Future Scheduled 2022-03-11 COVID-19 VACCINE (4 - [facility] Test 09:57:57 Booster for Moderna series) [code = COVID-19 VACCINE (4 - Booster for Moderna series)] Future Scheduled 2022-03-11 INFLUENZA VACCINE Method [facility] Test 09:57:57 [code = INFLUENZA VACCINE] Encounters Start End Encounter Admission Attending Care Care Encounter Source Date/Time Date/Time Type Type Clinicians Facility Department ID 2022-04-24 Inpatient ISATU Grady [facility] [id number] [facility] 21:45:[address] 2022-03-07 2022-03-07 Telephone Shanna Shields.2.840.1 [id number] Methodi 00:00:00 00:00:[address] 3.430.2.7 Hospit a .3.477048 l .8 2021-12-25 2021-12-25 Telephone Shanna Henderson.2.840.1 [id number] [facility] 00:00:00 00:00:[id number] 3.430.2.7 Hospit a .3.389734 l .8 2021-12-06 2021-12-06 [facility], 1.2.840.1 [id number] Methodi 11:05:21 23:59:00 Encounter Belinda [address]142.1.[address] 3.430.2.7 Hospit a .3.298471 l .8 2021-12-06 2021-12-06 Outpatient SANTIAGO, [facility] [id number] 00:00:00 00:00:[address] BELINDA [address] 2021-12-06 2021-12-06 Travel 1.2.840.1 [id number] [id number] [facility] 00:00:00 00:00:[address] 3.430.2.7 0.2.7.3.698 spita .3.178183 084.8 l .8 2021-11-29 2021-11-29 Lab [place], 1.2.840.1 [id number] [facility]i 11:50:00 11:55:[address] 3.430.2.7 Hospit a .3.065016 l .8 2021-11-29 2021-11-29 Office [place], 1.2.840.1 [id number] Methodi 09:30:00 10:22:24 Visit Belinda [address]240.1.[address] 3.430.2.7 Hospit a .3.549712 l .8 2021-11-29 2021-11-29 Outpatient [facility], [facility] [id number] 00:00:00 00:00:00 BELINDA [address] 2021-11-29 2021-11-29 Outpatient [facility] [id number] 00:00:00 00:00:00 BELINDA [address] 2020-08-05 2020-08-05 Outpatient [facility] [id number] [address] [place] [address] 08:20:00 08:20:00 [facility] 2020-07-08 2020-07-08 Outpatient R MAXIMO [facility] [id number] Univers 08:20:00 08:20:00 PALMA [facility] 2020-05-05 2020-05-05 Outpatient R SEAMUS [facility] [id number] Univers 18:00:00 18:00:00 KAYLIE [facility] 2020-05-05 2020-05-05 Laboratory Lab, Adc Fam Pob I [facility] 1.2. 840.114 [id number] Univers 17:35:50 17:55:50 Only Seamus [facility] 350.1.13.10 [facility] 4.2.7.2.686 Song as [phone] d[place] [address] Branch Office Building One Results Test Description Test Time Test Comments Results Result Comments Source T4, free 2021-12-02 15:26:00 Test Item Value Reference Range Interpretation Comme nts T4, free (test code = 3024-7) 1.5 ng/dL 0.8-1.8 RAC (test code = RAC) Performing Organization Information: Site ID: [id number] Name: [facility] Address: [address] [place] [phone] [facility] [id number] 15:26:00 Test Item Value Reference Range Interpretation Comments T3, free (test code 2.9 pg/mL 2.3-4.2 = 3051-0) RAC (test code = Performing Organization RAC) Information: Site ID: [id number] Name: [facility] Address: [address] [place] [phone] Director[facility] HospitalThyroglobulin [id number] 15:26:00 Test Item Value Reference Range Interpretation Comments Thyroglobulin Ab <1 See_Comment [Automated (test code = 8098-6) message ] The system which generated this result transmitted reference range : < or = 1 IU/mL. The reference range was not used to interpr et this result as normal/abnormal . RAC (test code = Performing RAC) Organization Information: Site ID: [id number] Name: [facility] Address: [address] [place] [address] Director: Dr. Bradley Sandoval [facility]
[2022-04-08 16:08] VITALS: BMI 28.9
[2022-04-08] MEDS: Ringers Lactate 1,000 ML IV SCH (16:08)
--- NOTE | 2022-04-08 16:31 | RAD REPORT ---
EXAM DESCRIPTION: US - Extremity Venous Uni Ltd - 04/08/2022 4:19 pm CLINICAL HISTORY: r/o DVT Leg swelling and edema. COMPARISON: No comparisons FINDINGS: Left lower extremity venous system was interrogated with Doppler technique. Normal flow, c ompressibility and augmentation was noted. There is no DVT present. IMPRESSION: No evidence of left lower extremity deep venous thrombosis.
[2022-04-08] MEDS ORDERED: CEFAZOLIN 1 GM in NA CHLORIDE 0.9% 50 ML IVPB SCH (17:00)
[2022-04-08] MEDS: METFORMIN HCL 500 MG TAB PO SCH (17:35)
[2022-04-08] MEDS: IBUPROFEN 600 MG TAB PO PRN (18:30)
[2022-04-08] MEDS ORDERED: D50W 25 GM/50 ML SYRINGE IV PRN (20:33)
[2022-04-08] MEDS ORDERED: GLUCAGON 1 MG/VIAL IM PRN (20:33)
[2022-04-08] MEDS ORDERED: D10W 125 ML IV PRN (20:42)
[2022-04-08] MEDS ORDERED: NA CHLORIDE 0.9% 100 ML ONE (21:13)
[2022-04-08] MEDS: HEPARIN 5000 UNIT/ML 1 ML VIAL SQ SCH (21:16)
[2022-04-08] MEDS: INSULIN -REGULAR HUMAN 50 UNIT/0.5 ML ML SQ SCH (21:17)
[2022-04-08] MEDS: CEFAZOLIN 1 GM in NA CHLORIDE 0.9% 50 ML IVPB SCH (21:19)
[2022-04-09] MEDS: Ringers Lactate 1,000 ML IV SCH (00:30)
[2022-04-09 00:33] VITALS: O2SAT 98
[2022-04-09] MEDS: CEFAZOLIN 1 GM in NA CHLORIDE 0.9% 50 ML IVPB SCH (05:49)
[2022-04-09] MEDS: IBUPROFEN 600 MG TAB PO PRN (05:51)
[2022-04-09 06:28] LABS: Absolute Lymphocytes (CBC) 1.8 K/uL (0.7-4.9); Lymphocytes % 19.8 % (15.3-44.8); MCV 91.5 fL (80-100); MPV 9.2 fL (7.6-11.3); RBC Red Blood Cell Count 3.61 M/uL (3.86-4.86)
[2022-04-09] MEDS ORDERED: LEVOTHYROXINE SOD 0.088 MG TAB PO SCH (06:30)
[2022-04-09 06:35] LABS: Potassium 4.2 mmol/L (3.5-5.1)
[2022-04-09] MEDS: INSULIN -REGULAR HUMAN 50 UNIT/0.5 ML ML SQ SCH (07:30)
[2022-04-09] MEDS: HEPARIN 5000 UNIT/ML 1 ML VIAL SQ SCH (08:22)
[2022-04-09] MEDS: METFORMIN HCL 500 MG TAB PO SCH (08:22)
--- NOTE | 2022-04-09 10:06 | OP ---
Date of Procedure: 04/08/2022 Surgeon: Argentina Grady MD Automatic Seamer: Cheri Tsang. Preoperative Diagnoses: Stage II incomplete uterovaginal prolapse and stress urinary incontinence. Postoperative Diagnoses: Stage III anterior followed by incomplete uterovaginal prolapse, posterior wall prolapse, and stress urinary incontinence. Procedures Performed: Bilateral sacrospinous ligament fixation, colpopexy along with anterior wall r epair augmented with biologic graft and posterior wall repair, perineorrhaphy, mid urethral sling (TV TO), and cystoscopy. Ebl: 100. Urine Output: 500. Findings: 0+, 2, 0, 7 moderate, 8, -2, -2, -3. A 4-point excision was done on the biologic graft, 2 apical and lateral supports and 3-point fixation anterior posterior, anteriorly to the lowest part o f the anterior vaginal canal and then for the most part in the middle to the cervical stroma of prece rvical fascia. Prolene sutures x2 were placed in the sacrospinous ligament and attached the graft on both sides. Th en a PDS suture was taken in the left white line as well as the sacrospinous ligament close to the is chial spine as the right lateral . So suture was placed immediately medial to the ischial spine and stitched to an appropriate point on the graft. The entire graft was used . The patient is a diabetic and after good control, she was cleared medically by her primary care. His tory of DVT and PE in 2000, which were cleared and she had heparin for 3 months after the on urodynamic testing. PVR was mostly normal. Both vaginal repairs with and without graft as well as laparoscopic were all offered to th e patient. She wanted to proceed with a vaginal repair. After completely reviewing the preoperative consent, she was taken back to the OR. Questions and answers were done to the patient and 's satisfaction. Procedure In Detail: She was placed in a supine fashion on the operating table where general anesthe galo was given. She was placed in dorsal lithotomy position. Pelvic exam was performed. Vagina and perineum were prepped and draped in sterile fashion. Oconnor was placed in the bladder and retracted s uperiorly. POP-Q was done and then the ischial spines were palpated. The anterior midline vaginal w all was injected midline incision with a 15 blade. Dissection was carried through the par avaginal spaces. Once entering the paravesical space, the paravesical space was opened up bite was taken and then another Prolene suture was used in the mid ligament on the right sacrospinou s ligament. Then after multiple attempts to place a was difficult to have success so a st itch was placed immediately medial to the ischial spine with the PDS suture. An 8 x 5 x 6 graft was fashioned taking down 3 Prolene sutures in the midline through the cervical stroma were sutured and held on clamps. Then 3 PDS sutures in the midline and 1 on either side on the distal part of the anterior vaginal wall. A pursestring suture with 3-0 Vicryl was placed on the bladder. I then went ahead and tied the sutures . Once this was done, there was excellent support on the right side. Thorough irrigation and suctio n were performed, slightly trimming of less than 0.5 cm was done of the anterior vaginal wall epithel ium. Continuous running horizontal mattress sutures were placed and the procedure was closed. picked up with Allis clamps, incision with 15 blade, and injection with 10 cc normal salin e. 2 lateral tunnels were created towards the obturator space hugging the inferior pubic ramus track was widened up and Corazon pulled out. The same procedure was repeated on the opposite side as well. Wing guide was placed in the tract and into the obturator space and the spike was passed t hrough this point and rotated around the pubic bone to exit lateral 2 cm to the groin fold and superi or to the horizontal line dropped to the level of the external meatus. Once all this was done, simil ar pass was taken on the opposite side as well. Incision was tensioned appropriately using a Caterina c lamp and laying the mesh flat. The sheaths were pulled out. Antibiotic irrigation was done. Contin uous running locked 0 Vicryl suture was placed. Minimal EBL. The bladder was drained. Oconnor was re moved and then cystoscope was used to visualize both lateral wall trigone, the area above the trigone , and both ureteric orifices. Good jets of urine from both ureteral orifices. No evidence of any in jury or foreign body. The bladder was drained. Oconnor was replaced. Two Allis clamps were placed at the in the distal to one half of the posterior vaginal wal l. Epithelium was deepithelialized as well as the perineal body was opened up and structures all the way out. The vaginal tissue epithelium was from the underlying connective tissue of the r emnant. Once all this was done, the 2-0 PDS was taken to plicate the center. Perineal linda dy was reconstructed with the help of interrupted 2-0 Vicryl sutures. PDS suture was fixed to this a nd tied inside. Vaginal epithelium was mobilized and closed with the help of a continuous running 2- 0 Vicryl suture. Rectal exam was done and was normal. No evidence of any trauma or injury. Gloves were changed. Packing was done. Oconnor was connected to drainage bag. Instrument, needle, and spong e counts were correct at the end of the case. Left lower extremity venous duplex to rule out a DVT. Heparin subcu b.i.d. until discharge. History of left foot fracture with 2 metatarsals fractured. The patient was immobilized with Ravin wrap. [facility] and then heparin subcu for prevention perioperatively. JAN/COLEEN Voice ID: [id number] Report ID: [id number]
[2022-04-09 10:25] VITALS: BP 112/59; TEMP 97.9
== END 2022-04-09 10:00 | disposition home or self-care (01) ==
LOC: OR 08:10 → 2ND-WC 14:48
PROVIDERS: ADMIT Obstetrics & Gynecology; ATTEND Obstetrics & Gynecology
PROC: 0JUC0JZ Supplement of Pelvic Region Subcutaneous Tissue and Fascia with Synthetic Substitute, Open Approach (ICD-10-PCS; 2022-04-08)
PROC: 0TSD0ZZ Reposition Urethra, Open Approach (ICD-10-PCS; 2022-04-08)
PROC: 0HQ9XZZ Repair Perineum Skin, External Approach (ICD-10-PCS; 2022-04-08)
PROC: 0USG7ZZ Reposition Vagina, Via Natural or Artificial Opening (ICD-10-PCS; principal; 2022-04-08 09:00)
DX: N81.2 Incomplete uterovaginal prolapse (principal); N39.3 Stress incontinence (female) (male)
CPT/HCPCS: 85025; 80048; 36415 ×2; 86900; 86850; 85610; 86901; 82947 ×4; 85730; 81003; 93971; 87811; 57282; 57240; 57267; 57288; 12001; J2704; J1610; J1815; J1644 ×3; J2001; J2250; J3010 ×2; J1100; A4216; J7120; J7030 ×3; J2405; J0690 ×4; G0378; G0379